=== PATIENT | female | born 1965 | race Caucasian/White ===

== ENCOUNTER 2017-09-04 18:19 | Emergency (ER) | payer BC, OTHER ==
[~2017-09-04] VITALS: Ht 160 cm; Wt 90.7 kg
--- NOTE | ~2017-09-04 | EKG ---
[address] [place] [address] ELECTROCARDIOGRAM REPORT Name: CATIE HUMPHRIES Room #: DEP RAYMOND Powers#: [id number] Admission: 09/04/17 Attend Phys: Discharge: 09/04/17 Date of : 67 Report #: [id number] THIS REPORT FOR: //name// [facility] ED Test Date: 2017-09-04 Test Time: 19:16:16 Pat Name: CATIE HUMPHRIES Department: Room: Gender: F Relay Adjuster: [id number] : 1965 Requested By: Patricia Husain Order Number: [id number] MD: West Rivera Measurements Intervals [place] Rate: 85 P: 53 ID: [id number] QRS: 22 QRSD: 86 T: 13 QT: 404 QTc: 481 Interpretive Statements Sinus rhythm Nonspecific T abnormalities, diffuse leads Borderline prolonged QT interval Baseline wander in lead(s) V4,V5,V6 No previous ECG available for comparison Electronically Signed On 09-05-2017 9:12:00 RESEARCH ASST by West Rivera [email or web address] <ELECTRONICALLY SIGNED> By: West Rivera MD, [facility] 09/05/17911 15 15 West Rivera MD, FACC /EPI
[~2017-09-04 18:19] MED LIST: BENICAR HCT 201 EACH PO; CLONAZEPAM 0.50.5 M1 PO; KEFLEX500 MG PO; PROTONIX40 M1 PO; PROZAC20 MG PO
[2017-09-04 19:41] LABS: ABSOLUTE NEUTROPHILS 3.6 thou/uL (1.4-8.2); BASOPHILS 0.9 % (0.0-2.0); EOSINOPHILS 4.6 % (0.0-3.0); HEMATOCRIT 41.1 % (37.0-47.0); MCH 31.8 pg (26.0-34.0); MCHC 34.1 g/dL (28.0-37.0); MCV 93.2 fL (80.0-100.0); MONOCYTES 8.6 % (1.0-8.0); PLATELET COUNT 235 thou/uL (150-400); POLYS 52.9 % (36.0-66.0); RDW 12.5 % (10.5-14.5); WBC 6.8 thou/uL (4.0-11.0)
[2017-09-04 19:42] LABS: MANUAL DIFF NO
[2017-09-04 19:56] LABS: ANION GAP 9 mmol/L (7-16); BUN 10 mg/dL (7-18); CALCIUM 9.1 mg/dL (8.5-10.1); CHLORIDE 105 mmol/L (98-107); CO2 29 mmol/L (21-32); CREATININE 0.9 mg/dL (0.6-1.0); GLUCOSE 136 mg/dL (74-106); POTASSIUM 3.6 mmol/L (3.5-5.1); SODIUM 143 mmol/L (136-145)
[2017-09-04 20:05] LABS: TROPONIN-I < 0.04 ng/mL (<0.06)
[2017-09-04] MEDS ORDERED: NORCO 5-325 TA1 EACH PO (20:27)
[2017-09-04 20:46] VITALS: BP 128/73
== END 2017-09-04 20:46 | disposition home or self-care (01) ==
LOC: ER 18:19
PROVIDERS: Emergency Medicine
DX: S89.82XA Other specified injuries of left lower leg, initial encounter (principal); R55 Syncope and collapse; R07.9 Chest pain, unspecified; Z90.710 Acquired absence of both cervix and uterus; Z90.49 Acquired absence of other specified parts of digestive tract; Z98.890 Other specified postprocedural states; Z88.1 Allergy status to other antibiotic agents; Z88.5 Allergy status to narcotic agent; Z88.0 Allergy status to penicillin; W01.0XXA Fall on same level from slipping, tripping and stumbling without subsequent striking against object, initial encounter; Y93.89 Activity, other specified; Y92.89 Other specified places as the place of occurrence of the external cause; Y99.8 Other external cause status